=== PATIENT | male | born 1945 | race Caucasian/White ===

== ENCOUNTER 2018-07-10 10:24 | Inpatient (IN) | payer MEDICARE ==
[2018-07-10] VITALS (8 sets, daily range): BP systolic 109–134; BP diastolic 47–68
[~2018-07-10] VITALS: Ht 177.8 cm; Wt 165.0 kg
[~2018-07-10 10:24] MED LIST: AMLO10TA6 PO; ASPI81TA50 PO; BACITRACIN 50,000 UNIT in IV NORMAL SALINE 1000ML BAG 1,000 ML IRR ONE; BUPIVAC MPF-EPI 0.5%-1:200000 30 ML VIAL. ONE; CALC-494 PO; CRESTOR40 MG PO; DEXAMETHASONE SOD PHOS 20 MG/5 ML VIAL. ONE; FAMOTIDINE 20 MG/2 ML VIAL ONE; GABA800T2 PO; GELATIN SPONGE SIZE 100. ONE; GLYCOPYRROLATE 1 MG/5 ML VIAL. ONE; HYDROmorphone 2 MG/ML VIAL IV PRN; INSU100I13 SQ; IV RINGERS,LACTATED 1000ML 1,000 ML IV SCH; KETOROLAC 60 MG/2 ML INJ FOR OR. ONE; LEVO125T PO; LIDOCAINE 1% PF 2 ML VIAL. ID PRN; METO10TA5 PO; MORPHINE SULFATE 2 MG/ML VIAL. IV PRN; ONDANSETRON PF 4 MG/2 ML VIAL. IV PRN; ONDANSETRON PF 4 MG/2 ML VIAL. ONE; PATI8.4P PO; PHENYLEPHRINE 10 MG/ML VIAL. ONE; PHENYLEPHRINE in 0.9% NACL PF 1 MG/10 ML SYRINGE. IV ONE; PROCHLORPERAZINE 10 MG/2 ML VIAL. IV PRN; PROPOFOL 100 ML IV ONE; PROPOFOL 20 ML IV ONE; REMIFENTANIL 2 MG VIAL. IV ONE; ROCURONIUM 50 MG/5 ML VIAL. ONE; SUCCINYLCHOLINE 200 MG/10 ML VIAL. ONE; THROMBIN TOPICAL 20,000 UNIT SPRAY.SYRN KIT TP ONE; WARF2TAB96 PO; ceFAZolin SODIUM 3 GM in IV DEXTROSE 5% 100ML 100 ML IV PRN; fentaNYL PF VIAL 100 MCG/2 ML VIAL IV PRN
--- NOTE | 2018-07-10 11:05 | PREOP HP ---
DATE OF SERVICE: 07/10/2018 HISTORY OF PRESENT ILLNESS: The patient is a pleasant 72-year-old who has difficulty with low back pain along with lower extremity pain and weakness. The right side is more involved than the left. The problem has been present for 3 years and has been progressive. He rates his pain as a 9 out of 10. Walking and especially walking upstairs or standing markedly increases his pain. Sitting helps him. PAST MEDICAL HISTORY: Arthritis, gout, hypertension, renal dialysis, diabetes and heart disease. PAST SURGICAL HISTORY: None documented. FAMILY HISTORY: Cancer, diabetes, heart disease and hypertension. SOCIAL HISTORY: Retired. . Exercises daily. Denies substance abuse. Denies tobacco use. Drinks alcohol 1-2 times per year. Drinks soda daily. ALLERGIES: METFORMIN. CURRENT MEDICATIONS: Coumadin. REVIEW OF SYSTEMS: A 12-point review of systems was obtained and is noncontributory, except for that mentioned above. PHYSICAL EXAMINATION: NEUROSURGERY EXAMINATION: GENERAL APPEARANCE: Alert, pleasant, no acute distress. HEAD: Normocephalic and atraumatic. SKIN: Warm and dry. MUSCULOSKELETAL: Lumbar paraspinal muscle bulk is normal, restricted range of motion of the lumbar spine, cywk-rj-leihdtct tenderness of the lower lumbar spine with palpation, normal range of motion of the lower extremities bilaterally. EXTREMITIES: No clubbing, cyanosis or edema. NEUROLOGIC: Alert and oriented x 3. Normal recent and remote memory. Strength 5/5 in bilateral lower extremities. Sensory is intact to light touch in lower extremities bilaterally. Reflexes are present and symmetric in bilateral lower extremities. Negative straight leg raising bilaterally. IMAGING: I reviewed a lumbar MRI scan. There is moderate stenosis at L4-L5 along with motion of lumbar flexion and extension films. There is mild stenosis at L3-L4. ASSESSMENT: 1. Spinal stenosis, lumbar region with neurogenic claudication. 2. Spondylolisthesis, lumbar region. PLAN: At this point, I feel the most prudent course would be to consider surgery at L4-L5 with laminectomy combined with instrumented fusion. I did discuss this with Clifford and his . They strongly would like to move forward with surgery. I further outlined the risks of operations which I think are significant in general because of his comorbidities. He understands. He would like me to do arrangements. We will make the arrangements. MARY KATE ZARATE MD DR: CABRERA/wally JOB#: [id number] / [id number] JAMILAH
[2018-07-10] MEDS ORDERED: METO25TA2 PO (11:11)
[2018-07-10] MEDS ORDERED: FOLI0.8T3 PO (11:12)
[2018-07-10] MEDS ORDERED: INSU200I SQ (11:13)
[2018-07-10 11:32] LABS: BASO # 0.1 x10^3/uL (0.0-0.2); BASO % 1 % (0-3); EOS # 0.2 x10^3/uL (0.0-0.7); EOS % 3 % (0-3); HEMATOCRIT 36.4 % (39.0-53.0); HEMOGLOBIN 12.5 g/dL (13.0-17.5); LYMPH # 1.8 x10^3/uL (1.0-4.8); LYMPH % 21 % (24-48); MEAN CORPUSCULAR HEMOGLOBIN 33 pg (25-35); MEAN CORPUSCULAR HGB CONC 34 g/dL (31-37); MEAN CORPUSCULAR VOLUME 95 fL (79-100); MONO % 12 % (0-9); NEUT # 5.5 x10^3uL (1.8-7.7); NEUT % 64 % (31-73); PLATELET COUNT 173 x10^3/uL (140-400); RED BLOOD COUNT 3.82 x10^6/uL (4.30-5.70); RED CELL DISTRIBUTION WIDTH 14.6 % (11.5-14.5); WHITE BLOOD COUNT 8.6 x10^3/uL (4.0-11.0)
[2018-07-10 11:37] LABS: CALCIUM 9.1 mg/dL (8.5-10.1); CREATININE 14.3 mg/dL (0.7-1.3); GFR 3.4; POTASSIUM 4.4 mmol/L (3.5-5.1)
[2018-07-10 11:41] LABS: PROTHROMBIN TIME PATIENT 14.2 SEC (11.7-14.0)
[2018-07-10 11:44] LABS: ALBUMIN 3.7 g/dL (3.4-5.0); ALBUMIN/GLOBULIN RATIO 0.9 (1.0-1.7); TOTAL BILIRUBIN 0.5 mg/dL (0.2-1.0)
[2018-07-10] MEDS ORDERED: IV NORMAL SALINE 1000ML BAG 1,000 ML IV ONE (11:45)
--- NOTE | 2018-07-10 13:15 | RAD ---
CT LUMBAR SPINE WO CONTRAST Indication: Lumbar stenosis Technique: Noncontrast CT imaging was performed of the lumbar spine, exam performed for the purpose of surgical assistance, multiplanar reconstruction images submitted. One or more of the following individualized dose reduction techniques were utilized for this examination: 1. Automated exposure control 2. Adjustment of the mA and/or kV according to patient size 3. Use of iterative reconstruction technique. Comparison: None Findings: There is grade 1 anterior spondylolisthesis L4-5. There is moderate vacuum disc disease L4-5, mild degenerative disc disease at other levels. Lumbar vertebral body stature is overall maintained, small inferior L1 Schmorl's node. There is also vacuum disc disease at T12-L1. There is multilevel facet hypertrophic change. There is likely moderate left lateral recess stenosis L3-4 primarily from posteriorly by facet. There is suspected the jkjw-iu-nxbmwasz spinal stenosis at L4-5. There is moderate narrowing of the left L4-5 and L5-S1 neural foramina, lesser degree of narrowing on the right L3-4 to L5-S1. There are some fused osteophytes along the sacroiliac joints bilaterally. There is mild lumbar levoscoliosis. There is some atherosclerotic calcification near the origins of the renal arteries as well as superior mesenteric artery. IMPRESSION: 1. There is degenerative disc disease greatest L4-5. There is grade 1 anterior spondylolisthesis L4-5, multilevel facet and change. There is suspected cbbw-[id number] spinal stenosis L4-5 and left lateral recess stenosis L3-4. There is multilevel neural foramina compromise of the inferior lumbar spine. Electronically signed by: Jose Leslie MD (07/10/2018 1:12 PM) [id number]
[2018-07-10] MEDS ORDERED: oxyCODONE/APAP 5/325 1 TAB TABLET PO PRN (14:15)
[2018-07-10] MEDS ORDERED: MAGNESIUM HYDROXIDE 2,400 MG/30 ML ORAL.SUSP. PO PRN (14:15)
[2018-07-10] MEDS ORDERED: 0.9 % SODIUM CHLORIDE 10 ML DISP.SYRIN. IV PRN (14:15)
[2018-07-10] MEDS ORDERED: CALCIUM CARBONATE 500 MG TAB.CHEW PO PRN (14:15)
[2018-07-10] MEDS ORDERED: diphenhydrAMINE HCL 25 MG CAPSULE PO PRN (14:15)
[2018-07-10] MEDS ORDERED: MAG HYDROX/ALUMINUM HYD/SIMETH 30 ML ORAL.SUSP PO PRN (14:15)
[2018-07-10] MEDS ORDERED: NALOXONE 0.4 MG/ML VIAL. IV PRN (14:15)
[2018-07-10] MEDS ORDERED: ACETAMINOPHEN 325 MG TABLET. PO PRN (14:15)
[2018-07-10] MEDS ORDERED: NON FORMULARY ITEM (Patiromer Calcium Sorbitex (Veltassa) 8.4 GM) PO SCH (14:15)
[2018-07-10] MEDS ORDERED: DEXTROSE 50% 25 GM / 50ML DISP.SYRIN. IV PRN (14:15)
[2018-07-10] MEDS ORDERED: REMIFENTANIL 2 MG VIAL. IV ONE ×2 (14:30→16:27)
[2018-07-10] MEDS ORDERED: ceFAZolin SODIUM 1 GM VIAL ONE ×3 (14:46)
[2018-07-10] MEDS ORDERED: amLODIPine BESYLATE 10 MG TABLET PO SCH (15:00)
[2018-07-10] MEDS ORDERED: METOPROLOL SUCC 24HR ER 100 MG TAB.ER.24H. PO SCH (15:00)
[2018-07-10] MEDS ORDERED: metOLazone 2.5 MG TABLET PO SCH (15:00)
[2018-07-10] MEDS ORDERED: PHENYLEPHRINE 10 MG/ML VIAL. ONE (15:36)
[2018-07-10] MEDS ORDERED: GELATIN SPONGE SIZE 100. ONE (16:24)
[2018-07-10] MEDS ORDERED: THROMBIN TOPICAL 20,000 UNIT SPRAY.SYRN KIT TP ONE (16:24)
[2018-07-10] MEDS ORDERED: PROPOFOL 50 ML IV ONE (16:28)
[2018-07-10] MEDS ORDERED: NON FORMULARY ITEM (Insulin Lispro (Humalog Kwikpen) 200 UNIT) SQ SCH (16:30)
[2018-07-10] MEDS: fentaNYL PF VIAL 100 MCG/2 ML VIAL IV PRN ×3 (18:26→23:40)
[2018-07-10] MEDS: DOCUSATE SODIUM 100 MG CAPSULE. PO SCH (20:34)
[2018-07-10] MEDS: GABAPENTIN 300 MG CAPSULE. PO SCH (20:34)
[2018-07-10] MEDS: METHOCARBAMOL 750 MG TABLET PO SCH (20:34)
[2018-07-10] MEDS: oxyCODONE/APAP 5/325 1 TAB TABLET PO PRN (20:34)
[2018-07-10] MEDS: POTASSIUM CL 20MEQ-0.45% NACL 1,000 ML IV SCH (20:36)
[2018-07-10] MEDS ORDERED: INSULIN GLARGINE 300 UNITS/3 ML INSULN.PEN. SQ SCH (21:00)
[2018-07-10] MEDS: ceFAZolin SODIUM 1 GM in IV DEXTROSE 5% 50 ML IV SCH (21:44)
[2018-07-11 02:15] VITALS: BP 121/64
[2018-07-11] MEDS: POTASSIUM CL 20MEQ-0.45% NACL 1,000 ML IV SCH (03:25)
[2018-07-11] MEDS: oxyCODONE/APAP 5/325 1 TAB TABLET PO PRN ×2 (04:51→12:53)
[2018-07-11 06:00] VITALS: BP 124/60
[2018-07-11] MEDS ORDERED: LEVOTHYROXINE 125 MCG TABLET PO SCH (06:00)
--- NOTE | 2018-07-11 08:04 | PDOC2 ---
CONSULT Date of Consult Date of Consult DATE: 07/11/18 TIME: 08:03 Reason for Consult Reason for Consult: Medical management Referring Physician Referring Physician: Dr. Micky Oglesby Identification/Chief Complaint Chief Complaint Back pain Source Source: Chart review, Patient History of Present Illness Reason for Visit: 72-year-old w/PMHx Morbid obesity, ESRD on HD TuThSa, CHF, CAD, Afib, BRAYDEN on CPAP, hypothyroidism, HLD, HTN who was admitted for difficulty with low back pain along with lower extremity pain and weakness. 3 year history, progressive who is now s/p L4-5 laminectomy with hardware per neurosurgery, feeling well. Consulted for medication management. He has worked with PT, up 3 stairs, down the castellanos, feeling much improved. Makes very little urine at baseline, has had no complications with his dialysis , compliant with medications, has had hyperglycemia here in house, has a sliding scale per his PCP 12, 14,,18,20,26 units on 20mg/dL increments from 120- 200 and 80 units nightly lantus with average glucose of 110 at home, no hypoglycemic episodes. He is compliant with CPAP. He is accompanied by his , plans to return to [facility] today where he lives with her currently. Past Medical History Cardiovascular: AFIB, CAD, CHF, HTN, Pulmonary hypertension Pulmonary: Other (BRAYDEN on CPAP) GI: No pertinent hx Heme/Onc: No pertinent hx Hepatobiliary: No pertinent hx Psych: No pertinent hx Musculoskeletal: low back pain Rheumatologic: No pertinent hx Infectious disease: No pertinent hx ENT: No pertinent hx Renal/: Chronic renal failure Endocrine: Diabetes, Hypothyroidism Dermatology: No pertinent hx Past Surgical History Past Surgical History: Total hip replacement, Total knee replacement Family History Family History: Diabetes, Heart Disease, High Cholestrol, Hypertension, Hypothyroidism Social History No ALCOHOL: rare Drugs: None Lives: with Family Domestic Violence: Neg Current Medications Current Medications Current Medications Ondansetron HCl (Zofran) 4 mg PRN Q6HRS PRN IV NAUSEA/VOMITING; Start at 07:00; Stop 07/10/18 at 18:00; Status DC Fentanyl Citrate (Fentanyl 2ml Vial) 25 mcg PRN Q5MIN PRN IV MILD PAIN; Start 07/10/18 at 07:00; Stop 07/10/18 at 18:00; Status DC Fentanyl Citrate (Fentanyl 2ml Vial) 50 mcg PRN Q5MIN PRN IV MODERATE TO SEVERE PAIN; Start 07/10/18 at 07:00; Stop 07/10/18 at 18:00; Status DC Morphine Sulfate (Morphine Sulfate) 1 mg PRN Q10MIN PRN IV SEVERE PAIN; Start 07/10/18 at 07:00; Stop 07/10/18 at 18:00; Status DC Ringer's Solution 1,000 ml @ 30 mls/hr Q24H IV Last administered on at 07:00; Start 07/10/18 at 07:00; Stop 07/10/18 at 18:59; Status DC Lidocaine HCl (Xylocaine-Mpf 1% 2ml Vial) 2 ml PRN 1X PRN ID IV START; Start 07/10/18 at 07:00; Stop 07/10/18 at 18:00; Status DC Hydromorphone HCl (Dilaudid) 0.5 mg PRN Q10MIN PRN IV SEV PAIN, Second choice; Start 07/10/18 at 07:00; Stop 07/10/18 at 18:00; Status DC Prochlorperazine Edisylate (Compazine) 5 mg PACU PRN PRN IV NAUSEA, MRX1; Start 07/10/18 at 07:00; Stop 07/10/18 at 18:00; Status DC Bacitracin 66952 unit/Sodium Chloride 1,000 ml @ 1,000 mls/hr 1X ONCE IRR Last administered on 07/10/18at 13:49; Start 07/10/18 at 06:00; Stop 07/10/18 at 06:59; Status DC Cefazolin Sodium 3 gm/Dextrose 100 ml @ 200 mls/hr 1X PREOP PRN IV PRIOR TO PROCEDURE Last administered on 07/10/18at 13:30; Start 07/10/18 at 06:00; Stop 07/10/18 at 15:00; Status DC Propofol 100 ml @ As Directed STK-MED ONCE IV ; Start 07/10/18 at 09:38; Stop 07/10/18 at 09:39; Status DC Glycopyrrolate (Robinul) 1 mg STK-MED ONCE .ROUTE ; Start 07/10/18 at 09:40; Stop 07/10/18 at 09:41; Status DC Succinylcholine Chloride (Anectine) 200 mg STK-MED ONCE .ROUTE ; Start at 09:40; Stop 07/10/18 at 09:41; Status DC Rocuronium [place] (Zemuron) 50 mg STK-MED ONCE .ROUTE ; Start 07/10/18 at 09: 40; Stop 07/10/18 at 09:41; Status DC Remifentanil HCl (Ultiva) 2 mg STK-MED ONCE IV ; Start 07/10/18 at 09:41; Stop 07/10/18 at 09:42; Status DC Propofol 20 ml @ As Directed STK-MED ONCE IV ; Start 07/10/18 at 09:42; Stop 07/10/18 at 09:43; Status DC Dexamethasone Sodium Phosphate (Decadron) 20 mg STK-MED ONCE .ROUTE ; Start at 09:42; Stop 07/10/18 at 09:43; Status DC Ondansetron HCl (Zofran) 4 mg STK-MED ONCE .ROUTE ; Start 07/10/18 at 09:42; Stop 07/10/18 at 09:43; Status DC Phenylephrine HCl (Paxton-Synephrine Inj) 10 mg STK-MED ONCE .ROUTE ; Start at 09:42; Stop 07/10/18 at 09:43; Status DC Famotidine (Pepcid Vial) 20 mg STK-MED ONCE .ROUTE ; Start 07/10/18 at 09:42; Stop 07/10/18 at 09:43; Status DC Phenylephrine HCl (PHENYLEPHRINE in 0.9% NACL PF) 1 mg STK-MED ONCE IV ; Start 07/10/18 at 09:48; Stop 07/10/18 at 09:49; Status DC Gelatin (Gelfoam Size 100) 1 each STK-MED ONCE .ROUTE Last administered on at 13:49; Start 07/10/18 at 09:59; Stop 07/10/18 at 10:00; Status DC Bupivacaine HCl/ Epinephrine Bitart (Sensorcain-Mpf Epi 0.5%-[id number]) 30 ml STK -MED ONCE .ROUTE Last administered on 07/10/18at 13:49; Start 07/10/18 at 09: 59; Stop 07/10/18 at 10:00; Status DC Ketorolac Tromethamine (Toradol For Or Only) 60 mg STK-MED ONCE .ROUTE Last administered on 07/10/18at 13:49; Start 07/10/18 at 09:59; Stop 07/10/18 at 10 :00; Status DC Thrombin 20,000 unit STK-MED ONCE TP Last administered on 07/10/18at 13:49; Start 07/10/18 at 09:59; Stop 07/10/18 at 10:00; Status DC Sodium Chloride 1,000 ml @ 100 mls/hr 1X ONCE IV Last administered on at 11:33; Start 07/10/18 at 11:45; Stop 07/10/18 at 21:44; Status DC Amlodipine Besylate (Norvasc) 10 mg DAILY PO ; Start 07/10/18 at 15:00 Aspirin (Ecotrin) 81 mg DAILY PO ; Start 07/11/18 at 09:00 Vitamin B Complex/ Vitamin C (Shari-Willian) 1 tab DAILY PO ; Start 07/11/18 at 09: 00 Insulin Glargine (Lantus) 80 units HS SQ Last administered on 07/10/18at 22:15 ; Start 07/10/18 at 21:00 Metoprolol Succinate (Toprol Xl) 100 mg DAILY PO ; Start 07/10/18 at 15:00 Calcium/Vitamin D (Oscal D 500mg/ 200uts) 1 tab TIDWMEALS PO ; Start 07/10/18 at 17:00 Gabapentin (Neurontin) 900 mg BID PO Last administered on 07/10/18at 20:34; Start 07/10/18 at 21:00 Non-Formulary Medication (Insulin Lispro (Humalog Kwikpen)) 200 unit TIDAC SQ ; Start 07/10/18 at 16:30; Status UNV Levothyroxine Sodium (Synthroid) 125 mcg DAILY06 PO Last administered on at 07:15; Start 07/11/18 at 06:00 Metolazone (Zaroxolyn) 10 mg DAILY PO ; Start 07/10/18 at 15:00 Non-Formulary Medication (Patiromer Calcium Sorbitex (Veltassa)) 8.4 gm pm PO ; Start 07/10/18 at 14:15; Status UNV Fentanyl Citrate (Fentanyl 2ml Vial) 50 mcg PRN Q2HR PRN IV SEVERE PAIN Last administered on 07/10/18at 23:40; Start 07/10/18 at 14:15 Dextrose (Dextrose 50%-Water Syringe) 12.5 gm PRN Q15MIN PRN IV SEE COMMENTS; Start 07/10/18 at 14:15 Acetaminophen (Tylenol) 650 mg PRN Q6HRS PRN PO MILD PAIN / TEMP; Start at 14:15 Al Hydroxide/Mg Hydroxide (Mylanta Plus Xs) 30 ml PRN Q3HRS PRN PO HEARTBURN / GAS; Start 07/10/18 at 14:15 Calcium Carbonate/ Glycine (Tums) 500 mg PRN Q3HRS PRN PO INDIGESTION; Start 07/10/18 at 14:15 Diphenhydramine HCl (Benadryl) 25 mg PRN Q6HRS PRN PO ITCHING; Start 07/10/18 at 14:15 Naloxone HCl (Narcan) 0.1 mg PRN Q2MIN PRN IV ADMIN; Start 07/10/18 at 14:15 Sodium Chloride (Normal Saline Flush) 3 ml QSHIFT PRN IV AFTER MEDS AND BLOOD DRAWS; Start 07/10/18 at 14:15 Potassium Chloride/Sodium Chloride 1,000 ml @ 75 mls/hr [id number] IV Last administered on 07/10/18at 20:36; Start 07/10/18 at 14:05; Stop 07/11/18 at 06 :13; Status DC Oxycodone/ Acetaminophen (Percocet 5/325) 1 tab PRN Q4HRS PRN PO MILD PAIN, 1ST CHOICE; Start 07/10/18 at 14:15 Oxycodone/ Acetaminophen (Percocet 5/325) 2 tab PRN Q4HRS PRN PO MODERATE PAIN , SEVERE PAIN Last administered on 07/11/18at 04:51; Start 07/10/18 at 14:15 Methocarbamol (Robaxin) 750 mg TID PO Last administered on 07/10/18at 20:34; Start 07/10/18 at 14:00 Docusate Sodium (Colace) 100 mg BID PO Last administered on 07/10/18at 20:34; Start 07/10/18 at 21:00 Magnesium Hydroxide (Milk Of Magnesia) 2,400 mg PRN Q12HR PRN PO CONSTIPATION; Start 07/10/18 at 14:15 Cefazolin Sodium 1 gm/Dextrose 50 ml @ 100 mls/hr Q12H IV Last administered on 07/10/18at 21:44; Start 07/10/18 at 22:00; Stop 07/11/18 at 10:29 Remifentanil HCl (Ultiva) 2 mg STK-MED ONCE IV ; Start 07/10/18 at 14:30; Stop 07/10/18 at 14:31; Status DC Cefazolin Sodium (Ancef) 1 gm STK-MED ONCE .ROUTE ; Start 07/10/18 at 14:46; Stop 07/10/18 at 14:47; Status DC Cefazolin Sodium (Ancef) 1 gm STK-MED ONCE .ROUTE ; Start 07/10/18 at 14:46; Stop 07/10/18 at 14:47; Status DC Cefazolin Sodium (Ancef) 1 gm STK-MED ONCE .ROUTE ; Start 07/10/18 at 14:46; Stop 07/10/18 at 14:47; Status DC Phenylephrine HCl (Paxton-Synephrine Inj) 10 mg STK-MED ONCE .ROUTE ; Start at 15:36; Stop 07/10/18 at 15:37; Status DC Gelatin (Gelfoam Size 100) 1 each STK-MED ONCE .ROUTE Last administered on at 16:26; Start 07/10/18 at 16:24; Stop 07/10/18 at 16:25; Status DC Thrombin 20,000 unit STK-MED ONCE TP Last administered on 07/10/18at 16:26; Start 07/10/18 at 16:24; Stop 07/10/18 at 16:25; Status DC Remifentanil HCl (Ultiva) 2 mg STK-MED ONCE IV ; Start 07/10/18 at 16:27; Stop 07/10/18 at 16:28; Status DC Propofol 50 ml @ As Directed STK-MED ONCE IV ; Start 07/10/18 at 16:28; Stop 07/10/18 at 16:29; Status DC Active Scripts Active Reported Humalog Kwikpen (Insulin Lispro) 200 Unit/1 Ml Insuln.pen 200 Unit SQ TIDAC Nephro-Willian Tablet (Folic Acid/Vitamin B Comp W-C) 0.8 Mg Tablet 1 Tab PO DAILY Toprol Xl (Metoprolol Succinate) 25 Mg Tab.er.24h 10 Mg PO DAILY Synthroid (Levothyroxine Sodium) 125 Mcg Tablet 1 Tab PO DAILY Lantus Solostar (Insulin Glargine,Hum.rec.anlog) 100 Unit/1 Ml Insuln.pen 80 Unit SQ HS Gabapentin 800 Mg Tablet 900 Mg PO BID Citracal + D3 Gummies (Calcium Phosphate Trib/Vit D3) 1 Each Tab.chew 1 Each PO TID Aspir-Low (Aspirin) 81 Mg Tablet.dr 1 Tab PO DAILY PRN Amlodipine Besylate 10 Mg Tablet 10 Mg PO DAILY Warfarin Sodium 2 Mg Tablet 7.5 Mg PO DAILY Crestor (Rosuvastatin Calcium) 40 Mg Tablet 90 Mg PO HS Veltassa (Patiromer Calcium Sorbitex) 8.4 Gm Powd.pack 8.4 Gm PO PM Metolazone 10 Mg Tablet 10 Mg PO DAILY Allergies Allergies: Coded Allergies: metformin (Verified Allergy, Intermediate, 07/10/18) ROS General: YES: Fatigue; No: Chills, Night Sweats, Malaise, Appetite, Other PSYCHOLOGICAL ROS: No: Anxiety, Behavioral Disorder, Concentration difficultie , Decreased libido, Depression, Disorientation, Hallucinations, Hostility, Irritablity, Memory difficulties, Mood Swings, Obsessive thoughts, Physical abuse, Sexual abuse, Sleep disturbances, Suicidal ideation, Other Eyes: No Blurry vision, No Decreased vision, No Double vision, No Dry eyes, No Excessive tearing, No Eye Pain, No Itchy Eyes, No Loss of vision, No Photophobia , No Scotomata, No Uses contacts, No Uses glasses, No Other HEENT: No: Heacaches, Visual Changes, Hearing change, Nasal congestion, Nasal discharge, Oral lesions, Sinus pain, Sore Throat, Epistaxis, Sneezing, Snoring, Tinnitus, Vertigo, Vocal changes, Other ALLERGY AND IMMUNOLOGY: No: Hives, Insect Bite Sensitivity, Itchy/Watery Eyes, Nasal Congestion, Post Nasal Drip, Seasonal Allergies, Other Hematological and Lymphatic: No: Bleeding Problems, Blood Clots, Blood Transfusions, Brusing, Night Sweats, Pallor, Swollen Lymph Nodes, Other ENDOCRINE: No: Breast Changes, Galactorrhea, Hair Pattern Changes, Hot Flashes , Malaise/lethargy, Mood Swings, Palpitations, Polydipsia/polyuria, Skin Changes , Temperature Intolerance, Unexpected Weight Changes, Other Breast: No New/Changing Breast Lumps, No Nipple changes, No Nipple discharge, No Other Respiratory: No: Cough, Hemoptysis, Orthopnea, Pleuritic Pain, Shortness of breath, SOB with excertion, Sputum Changes, Stridor, Tachypnea, Wheezing, Other Cardiovascular: No Chest Pain, No Palpitations, No Orthopnea, No Paroxysmal Noc. Dyspnea, No Edema, No Lt Headedness, No Other Gastrointestinal: Yes Nausea; No Vomiting, No Abdominal Pain, No Diarrhea, No Constipation, No Melena, No Hematochezia, No Other Genitourinary: No Dysuria, No Frequency, No Incontinence, No Hematuria, No Retention, No Discharge, No Urgency, No Pain, No Flank Pain, No Other, No , No , No , No , No , No , No Musculoskeletal: Yes Muscle Pain; No Gait Disturbance, No Joint Pain, No Joint Stiffness, No Joint Swelling, No Muscular Weakness, No Pain In:, No Swelling In:, No Other Neurological: No Behavorial Changes, No Bowel/Bladder ControlChng, No Confusion , No Dizziness, No Gait Disturbance, No Headaches, No Impaired Coord/balance, No Memory Loss, No Numbness/Tingling, No Seizures, No Speech Problems, No Tremors, No Visual Changes, No Weakness, No Other Skin: No Dry Skin, No Eczema, No Hair Changes, No Lumps, No Mole Changes, No Mottling, No Nail Changes, No Pruritus, No Rash, No Skin Lesion Changes, No Other, No Acne Physical Exam General: Alert, Oriented X3, Cooperative, No acute distress HEENT: Atraumatic, PERRLA, EOMI, Mucous membr. moist/pink Lungs: Clear to auscultation, Normal air movement Heart: No murmurs, Other (Irregularly irregular) Abdomen: Normal bowel sounds, Soft, No tenderness, No hepatosplenomegaly, No masses Extremities: No clubbing, No cyanosis, No edema, Normal pulses, No tenderness/ swelling, Other (LUE with fistula with excellent bruit) Skin: No rashes, No breakdown Neuro: Normal gait, Normal speech, Normal tone, Sensation intact, Reflexes 2+ Psych/Mental Status: Mental status NL, Mood NL MUSCULOSKELETAL: No joint tenderness, No swelling Vitals VITALS Vital Signs Date Time Temp Pulse Resp B/P (MAP) Pulse Ox O2 Delivery O2 Flow Rate FiO2 07/11/18 06:00 98.4 87 19 124/60 (81) 94 Room Air 98.4 07/10/18 17:50 10 Labs Labs Laboratory Tests Test 07/10/18 11:00 07/10/18 17:59 07/10/18 20:41 07/11/18 06:10 White Blood Count 8.6 x10^3/uL (4.0-11.0) Red Blood Count 3.82 x10^6/uL (4.30-5.70) Hemoglobin 12.5 g/dL (13.0-17.5) Hematocrit 36.4 % (39.0-53.0) Mean Corpuscular Volume 95 fL (79-100) Mean Corpuscular Hemoglobin 33 pg (25-35) Mean Corpuscular Hemoglobin Concent 34 g/dL (31-37) Red Cell Distribution Width 14.6 % (11.5-14.5) Platelet Count 173 x10^3/uL (140-400) Neutrophils (%) (Auto) 64 % (31-73) Lymphocytes (%) (Auto) 21 % (24-48) Monocytes (%) (Auto) 12 % (0-9) Eosinophils (%) (Auto) 3 % (0-3) Basophils (%) (Auto) 1 % (0-3) Neutrophils # (Auto) 5.5 x10^3uL (1.8-7.7) Lymphocytes # (Auto) 1.8 x10^3/uL (1.0-4.8) Monocytes # (Auto) 1.0 x10^3/uL (0.0-1.1) Eosinophils # (Auto) 0.2 x10^3/uL (0.0-0.7) Basophils # (Auto) 0.1 x10^3/uL (0.0-0.2) Prothrombin Time 14.2 SEC (11.7-14.0) Prothromb Time International Ratio 1.2 (0.8-1.1) Activated Partial Thromboplast Time 45 SEC (24-38) Sodium Level 135 mmol/L (136-145) Potassium Level 4.4 mmol/L (3.5-5.1) Chloride Level 92 mmol/L (98-107) Carbon Dioxide Level 24 mmol/L (21-32) Anion Gap 19 (6-14) Blood Urea Nitrogen 74 mg/dL (8-26) Creatinine 14.3 mg/dL (0.7-1.3) Estimated GFR (Cockcroft-Gault) 3.4 BUN/Creatinine Ratio 5 (6-20) Glucose Level 84 mg/dL (70-99) Calcium Level 9.1 mg/dL (8.5-10.1) Total Bilirubin 0.5 mg/dL (0.2-1.0) Aspartate Amino Transf (AST/SGOT) 12 U/L (15-37) Alanine Aminotransferase (ALT/SGPT) 17 U/L (16-63) Alkaline Phosphatase 65 U/L (46-116) Total Protein 8.0 g/dL (6.4-8.2) Albumin 3.7 g/dL (3.4-5.0) Albumin/Globulin Ratio 0.9 (1.0-1.7) Glucose (Fingerstick) 106 mg/dL (70-99) 150 mg/dL (70-99) 151 mg/dL (70-99) Laboratory Tests Test 07/10/18 11:00 07/10/18 17:59 07/10/18 20:41 07/11/18 06:10 White Blood Count 8.6 x10^3/uL (4.0-11.0) Red Blood Count 3.82 x10^6/uL (4.30-5.70) Hemoglobin 12.5 g/dL (13.0-17.5) Hematocrit 36.4 % (39.0-53.0) Mean Corpuscular Volume 95 fL (79-100) Mean Corpuscular Hemoglobin 33 pg (25-35) Mean Corpuscular Hemoglobin Concent 34 g/dL (31-37) Red Cell Distribution Width 14.6 % (11.5-14.5) Platelet Count 173 x10^3/uL (140-400) Neutrophils (%) (Auto) 64 % (31-73) Lymphocytes (%) (Auto) 21 % (24-48) Monocytes (%) (Auto) 12 % (0-9) Eosinophils (%) (Auto) 3 % (0-3) Basophils (%) (Auto) 1 % (0-3) Neutrophils # (Auto) 5.5 x10^3uL (1.8-7.7) Lymphocytes # (Auto) 1.8 x10^3/uL (1.0-4.8) Monocytes # (Auto) 1.0 x10^3/uL (0.0-1.1) Eosinophils # (Auto) 0.2 x10^3/uL (0.0-0.7) Basophils # (Auto) 0.1 x10^3/uL (0.0-0.2) Prothrombin Time 14.2 SEC (11.7-14.0) Prothromb Time International Ratio 1.2 (0.8-1.1) Activated Partial Thromboplast Time 45 SEC (24-38) Sodium Level 135 mmol/L (136-145) Potassium Level 4.4 mmol/L (3.5-5.1) Chloride Level 92 mmol/L (98-107) Carbon Dioxide Level 24 mmol/L (21-32) Anion Gap 19 (6-14) Blood Urea Nitrogen 74 mg/dL (8-26) Creatinine 14.3 mg/dL (0.7-1.3) Estimated GFR (Cockcroft-Gault) 3.4 BUN/Creatinine Ratio 5 (6-20) Glucose Level 84 mg/dL (70-99) Calcium Level 9.1 mg/dL (8.5-10.1) Total Bilirubin 0.5 mg/dL (0.2-1.0) Aspartate Amino Transf (AST/SGOT) 12 U/L (15-37) Alanine Aminotransferase (ALT/SGPT) 17 U/L (16-63) Alkaline Phosphatase 65 U/L (46-116) Total Protein 8.0 g/dL (6.4-8.2) Albumin 3.7 g/dL (3.4-5.0) Albumin/Globulin Ratio 0.9 (1.0-1.7) Glucose (Fingerstick) 106 mg/dL (70-99) 150 mg/dL (70-99) 151 mg/dL (70-99) Images Images CT lumbar spine - 1. There is degenerative disc disease greatest L4-5. There is grade 1 anterior spondylolisthesis L4-5, multilevel facet and change. There is suspected [id number] spinal stenosis L4-5 and left lateral recess stenosis L3-4. There is multilevel neural foramina compromise of the inferior lumbar spine. Assessment/Plan Assessment/Plan A/P: Lower back pain, radicular - s/p laminectomy, feeling well, worked well with PT. Rehab per neurosurgery, outpatient PT to be planned near [facility] CHF - stable on BB, statin, fluid status per dialysis, also on 80 TID lasix and zaroxyln daily, however has very little UOP, this likely does not need to be addressed. ESRD on HD - TuThSa, due for dialysis tomorrow, goes through [facility] nephrology group, will consult nephrology if he requires inpatient an additional day to recover, can consult Dr. SNELL if plans to stay on 07/12/18 to arrange for dialysis inpatient BRAYDEN on CPAP - 14cm H20, brought his home device Hypothyroidism - managed on his 125mcg daily levothyroxine, stable DM - controlled on 80 u QHS lantus + sliding scale: basal of 12 units, technically: 12, 14,,18,20,26 units on 20mg/dL increments from 120-200 Afib - on metoprolol + coumadin. Would restart coumadin when ok with neurosurgery, technically should consider bridging as he has elevated [id number] 4+, though he can also simply restart coumadin, but as he is ESRD this would be difficult as lovenox cannot be used, will defer to neurosurgery timing of anticoagulation. HTN - as above for CHF FEN - ADA cardiac diet PPX - SCDs, would restart coumadin LUZMARIA per neurosurgery ok CODE - FULL Inpatient for laminectomy recovery, will follow if patient remains in house, if he is here tomorrow he needs dialysis to be arranged prior to d/c. If he goes today can return to his dialysis center. Thank you for consulting [facility] to care for this pleasant patient, contact me for further orders when necessary. ELYSSA ZUÑIGA MD Jul 11, 2018 08:04
[2018-07-11] MEDS: DOCUSATE SODIUM 100 MG CAPSULE. PO SCH (08:11)
[2018-07-11] MEDS: GABAPENTIN 300 MG CAPSULE. PO SCH (08:12)
[2018-07-11] MEDS: CALCIUM CARB/VIT D3 500/200 TABLET. PO SCH ×2 (08:12→11:46)
[2018-07-11] MEDS ORDERED: ASPIRIN ENTERIC COATED 81 MG TABLET.DR. PO SCH (09:00)
[2018-07-11] MEDS ORDERED: FOLIC/VIT B COMP W-C (RENAL) TABLET. PO SCH (09:00)
[2018-07-11] MEDS: METHOCARBAMOL 750 MG TABLET PO SCH ×2 (09:11→12:51)
[2018-07-11] MEDS: ceFAZolin SODIUM 1 GM in IV DEXTROSE 5% 50 ML IV SCH (10:10)
[2018-07-11] MEDS ORDERED: DEXTROSE 50% 25 GM / 50ML DISP.SYRIN. IV PRN (10:30)
--- NOTE | 2018-07-11 11:12 | DISCH ---
DISCHARGE INSTRUCTIONS Condition on Discharge Condition on Discharge: Stable Activity After Discharge Activity Instructions for Disc: Activity as tolerated, Avoid exertion Bathing Instructions: Shower-keep dressing dry Lifting Instructions after Dis: No heavy lifting, No pulling or pushing, Do not lift >10 pounds Driving Instructions after Dis: No driving for 2 weeks Diet after Discharge Diet after Discharge: Diabetic No Calorie Level Additional Diet Restrictions: resume home diet Wound Incision Care Wound/Incision Care: Ice to area for comfort Other wound/incision instructi: ok to remove dressing in 48 hrs if dry then may shower, no soaking Contacting the DRRudy after DC Call your doctor for: Concerns you may have Follow-Up Follow up with: Dr. Zarate's nurse in 2 weeks [phone] MARY KATE ZARATE MD Jul 11, 2018 11:12
[2018-07-11 11:15] VITALS: BP 121/54
[2018-07-11] MEDS ORDERED: OXYC1TAB7 PO (11:20)
[2018-07-11] MEDS ORDERED: METH750T2 PO (11:20)
[2018-07-11] MEDS ORDERED: INSULIN LISPRO 300 UNITS/3 ML INSULN.PEN. SQ SCH (12:00)
--- NOTE | 2018-07-12 18:07 | PATHOLOGY ---
[facility] Accession Number: [id number] . 01 Material submitted: . LUMBAR DECOMPRESSION . 01 Clinical history: . Lumbar spondylolisthesis, stenosis with neurogenic claudication . 02 Diagnosis: Segments of fibrocartilaginous, adipose, and skeletal muscle tissue and bone, lumbar decompression: - Degenerative changes of fibrocartilaginous tissue. . (JPM/at;07/12/2018) QTA/07/12/2018 . 02 Comment: There is no evidence of an acute inflammatory process or malignancy. . 02 Electronically signed: . Frederick Kang MD, Pathologist NPI- [id number] . 01 Gross description: . Received in formalin labeled "Clifford Torres, lumbar decompression," are several pieces of glistening, fibrous tissue measuring 4.2 x 3.4 x 0.6 cm in aggregate dimensions, containing small fragments of possible bone. The tissue submitted representatively in cassette A1, following decalcification. (TSD; 07/11/2018) TOB/TOB . 02 Pathologist provided ICD-10: M51.36 . 02 CPT . 175522, 521161 Specimen Comment: A courtesy copy of this report has been sent to Specimen Comment: [phone], . Specimen Comment: Report sent to / DR BINGHAM Performed at: 01 [facility] [address], [place] [id number] MD Dominick Loja MD Phone: [phone] Performed at: 02 [facility] [address], [place] [id number] MD Frederick Kang MD Phone: [phone]
--- NOTE | 2018-07-12 18:43 | OP ---
DATE OF SURGERY: 07/10/2018 PREOPERATIVE DIAGNOSES: 1. Severe lumbar spinal stenosis, L4-L5. 2. Spondylolisthesis with motion, L4-L5. OPERATION PERFORMED: 1. Right direct laminectomy, L4-L5. 2. Posterior instrumentation, L4-L5 and posterolateral fusion, L4-L5. The operation was done with stimulated EMG monitoring, fluoroscopy, microscopic dissection, BrainLAB guidance. SURGEON: Micky Zarate M.D. INDUSTRIAL CLEANING TECHNICIAN: MARCELO Weems assisted with surgery. She assisted with the instrumentation, fusion, closure. OPERATIVE INDICATIONS: The patient is a pleasant 72-year-old man who developed intractable back and right greater than left leg pain, which failed conservative measures. On imaging studies, he had the above-mentioned findings and I recommended a laminectomy combined with instrumented fusion. He did move on flexion and extension x-rays at L4-L5. He understood the surgery and the risks, the technique involved and he wished to go ahead. DESCRIPTION OF PROCEDURE: Following general endotracheal anesthesia, the patient was positioned prone on the Erick table. His lumbar region was prepped and draped in standard fashion. We were careful to avoid any pressure points. His lumbar region was prepped and draped in standard fashion. JUAN hose and AV impulse boots were applied for DVT prophylaxis. The microscope was draped. Fluoroscopy was draped and brought in the field. The monitoring was established. Ancef 3 grams was given less than 1 hour prior to initiation of surgery and repeated at 4-hour intervals. Using fluoroscopic guidance, the BrainLAB system was initialized by placing post in the left iliac crest and following initialization of the BrainLAB system, a midline incision was made extending from superior L4 to inferior L5. I dissected down skin and subcutaneous tissue and placed self-retaining retractors and exposed the spinous processes of L4 and L5 and the lamina at L4-L5 as well as the facet joints and transverse processes, beginning on the left side, I drilled into the posterior aspect of the pedicles of L4 and L5. I passed the black ball followed by ball tip probe, followed by tap. I used stimulated EMG monitoring for each of these maneuvers as well as screw placement. I aspirated 20 mL of bone marrow from the left iliac crest and placed allograft and autograft bone into the left gutter after I had excoriated the transverse processes in the lateral facet joints. I then using the [employer] system, I placed 6.5 x 45 screws in L4 and L5 and then switched to the right side. I brought in the microscope during this time and using the high-speed air drill, I tilted the patient away from nj and I drilled a very generous direct laminectomy of L4 and L5. I then tilted back toward nj and worked laterally performing a generous partial foraminotomy and fully decompressing entire region, I peeled away thickened ligamentum flavum and fully decompressed. I then palpated the disc, which was flat, no discectomy was warranted. I drilled into the posterior aspect of the pedicles of L4 and L5 and also during this time, I excoriated the transverse processes and packed allograft and autograft bone into the right lateral gutter. The autograft bone I obtained from keeping the bone from the generous laminectomy. Again, 6.5 diameter screws were placed in L4 and L5 and I placed the connecting rods using reduction screws. The system was sequentially torqued. The tabs were removed. There was a nice partial reduction of the spondylolisthesis. I had an excellent decompression of the dura and nerve roots. At this point then, the fusion was intact. The roots were very well decompressed as well as the common dural sac and the instrumented fusion was aligned excellently and confirmed on fluoroscopic images. I irrigated copiously with antibiotic solution. I closed the wound in layers with absorbable suture after I had again sequentially torqued the construct. I closed the wound in layers with absorbable sutures. The skin was closed with a 4-0 subcuticular stitch. The operation went very well and the patient was awakened uneventfully and taken to the recovery room in excellent condition. I was quite pleased with the surgery. MICKY ZARATE MD DR: CABRERA/wally JOB#: [id number] / [id number] JAMILAH
--- NOTE | 2018-07-16 15:58 | DS ---
DATE OF DISCHARGE: 07/11/2018 DATE OF SURGERY: 07/10/2018. DISCHARGE DIAGNOSES: Severe lumbar spinal stenosis, L4-L5; spondylolisthesis with motion, L4-L5. OPERATION PERFORMED: Right direct laminectomy, L4-L5 and posterior instrumentation, posterolateral fusion, L4-L5. HISTORY OF PRESENT ILLNESS: The patient is a pleasant 72-year-old man who developed intractable back and right greater than left leg pain, which failed to improve with conservative measures. On imaging studies, he had the above-mentioned findings and I recommended laminectomy combined with instrumented fusion. He understood the surgery and the risk and wished to proceed. HOSPITAL COURSE: He was admitted to the floor postoperatively where he did well. He was up ambulating in the room and in the halls. Physical therapy was initiated and instruction was given to him regarding his activities. His pain is well controlled. He is in good condition to discharge home. DISCHARGE MEDICATIONS: He will resume his medications per the MRAD. He will resume his Coumadin tomorrow. DISCHARGE INSTRUCTIONS: He was instructed regarding incision care, activity restrictions and expectations for the next several weeks. He will follow up in our office in 2 weeks. He understands to call with any questions or concerns. MARY KATE ZARATE MD DR: JOSE/wally JOB#: [id number] / [id number]
== END 2018-07-11 13:54 | disposition home or self-care (01) | DRG 459 ==
LOC: OPSVCIP 10:24 → 4 SOUTHWST 18:56
PROVIDERS: ADMIT Neurological Surgery; ATTEND Neurological Surgery
PROC: 0SG0071 Fusion of Lumbar Vertebral Joint with Autologous Tissue Substitute, Posterior Approach, Posterior Column, Open Approach (ICD-10-PCS; principal; 2018-07-11)
PROC: 4A11X4G Monitoring of Peripheral Nervous Electrical Activity, Intraoperative, External Approach (ICD-10-PCS; 2018-07-11)
DX: M48.062 Spinal stenosis, lumbar region with neurogenic claudication (principal); N18.6 End stage renal disease; I13.2 Hypertensive heart and chronic kidney disease with heart failure and with stage 5 chronic kidney disease, or end stage renal disease; M43.16 Spondylolisthesis, lumbar region; I50.9 Heart failure, unspecified; E11.22 Type 2 diabetes mellitus with diabetic chronic kidney disease; M19.90 Unspecified osteoarthritis, unspecified site; M10.9 Gout, unspecified; I48.91 Unspecified atrial fibrillation; I25.10 Atherosclerotic heart disease of native coronary artery without angina pectoris; G47.33 Obstructive sleep apnea (adult) (pediatric); E78.5 Hyperlipidemia, unspecified; E03.9 Hypothyroidism, unspecified; E66.01 Morbid (severe) obesity due to excess calories; Z96.659 Presence of unspecified artificial knee joint; Z96.649 Presence of unspecified artificial hip joint; I27.20 Pulmonary hypertension, unspecified; Z83.3 Family history of diabetes mellitus; Z82.49 Family history of ischemic heart disease and other diseases of the circulatory system; Z99.2 Dependence on renal dialysis; Z79.01 Long term (current) use of anticoagulants
CPT/HCPCS: 36415; 72131; 76000; 80053; 82962; 85025; 85610; 85730; 86850; 86900; 86901; 88304; 88311; A7015; C1713; J0330; J0690; J1100; J1815; J1885; J2370; J2405; J2704; J3010; J3490; J7030; J7120